=== PATIENT | male | born 1995 | race African-American/Black ===

== ENCOUNTER 2023-06-28 19:45 | Emergency (ER) | payer SELFPAY ==
[~2023-06-28] VITALS: Ht 188 cm; Wt 82.0 kg
[2023-06-28 19:58] VITALS: BP 128/90; PULSE 130; RESP 18; TEMP 98.4; O2SAT 100
== END 2023-06-28 20:20 | disposition home or self-care (01) ==
LOC: ER 19:45
DX: F10.129 Alcohol abuse with intoxication, unspecified (principal); Y90.9 Presence of alcohol in blood, level not specified
CPT/HCPCS: 99283